=== PATIENT | female | born 2005 | race Caucasian/White ===

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

== ENCOUNTER 2024-08-03 01:19 | Inpatient (IN) | payer BC ==
[2024-08-03] MEDS ORDERED: Sodium Chloride 0.9% 2.5 ML Syringe FLUSH PRN ×2 (02:08→05:10)
[2024-08-03] MEDS ORDERED: Butorphanol 2 MG/ML SDV IVPUSH PRN (02:08)
[2024-08-03] MEDS ORDERED: Ondansetron 4 MG/2 ML SDV IVPUSH PRN (02:08)
[2024-08-03] MEDS ORDERED: Carboprost Tromethamine 250 MCG/1 mL Vial IM PRN (02:08)
[2024-08-03] MEDS ORDERED: Sodium Chloride 0.9% 10 ML Syringe FLUSH PRN ×2 (02:08→05:10)
[2024-08-03] MEDS ORDERED: Tranexamic Acid in NACL,ISO-OS 1,000 MG/100 ML Bag IV PRN (02:08)
[2024-08-03] MEDS ORDERED: Sodium Chloride 0.9% 20 ML SDV IV PRN (02:08)
[2024-08-03] MEDS ORDERED: Nalbuphine 10 MG/1 ML Vial IVPUSH PRN (02:08)
[2024-08-03] MEDS ORDERED: Methylergonovine 0.2 MG/1 ML Amp IM PRN (02:08)
[2024-08-03] MEDS ORDERED: Water For Irrigation,Sterile 1,000 ML Container IRR PRN (02:08)
[2024-08-03] MEDS ORDERED: Lactated Ringers 1,000 ML IV SCH (02:15)
[2024-08-03] MEDS ORDERED: Simethicone 80 MG Tab.Chew PO PRN (05:10)
[2024-08-03] MEDS ORDERED: diphenhydrAMINE 50 MG Cap PO PRN (05:10)
[2024-08-03 05:30] LABS: HEMATOCRIT 34.6 % (37.0-47.0); HEMOGLOBIN 11.9 g/dL (12.0-16.0); MEAN CORPUSCULAR HGB CONC 34.4 g/dL (32.0-36.0); MEAN CORPUSCULAR VOLUME 81.4 fL (83.0-99.0); MEAN PLATELET VOLUME 11.6 fL (9.4-12.3); PLATELET COUNT,PLT 206 K/uL (150-400); RED BLOOD CELL COUNT 4.25 M/uL (4.10-5.30); WHITE BLOOD CELL COUNT,WBC 20.03 K/uL (3.9-11.3)
[2024-08-03] MEDS: Oxytocin/0.9 % Sodium Chloride 30 UNIT/500 ML BAG IV SCH (05:55)
[2024-08-03] MEDS: Misoprostol 200 MCG Tab RECTAL PRN (06:13)
[2024-08-03] MEDS: Lidocaine 1% 50 ML MDV INJECT PRN (06:14)
[2024-08-03] MEDS: Lanolin 100% Cream 7 GM Tube TOP PRN (07:11)
[2024-08-03] MEDS: Benzocaine/Menthol 20%-0.5% Spray 78 GM Cannister TOP PRN (07:11)
[2024-08-03] MEDS: Witch Hazel Medicated Pads 40/Jar TOP PRN (07:12)
[2024-08-03 07:13] LABS: PH,UMBILICAL ARTERIAL 7.105 (7.18-7.38); PH,UMBILICAL VENOUS 7.232 (7.25-7.45)
[2024-08-03] MEDS: Ibuprofen 800 MG Tab PO PRN (07:13)
[2024-08-03] MEDS: Acetaminophen 500 MG Tab PO PRN (07:14)
[2024-08-04 06:06] LABS: HEMOGLOBIN 9.7 g/dL (12.0-16.0); MEAN CORPUSCULAR HEMOGLOBIN 26.9 pg (28.0-32.0); MEAN CORPUSCULAR HGB CONC 32.3 g/dL (32.0-36.0); MEAN CORPUSCULAR VOLUME 83.1 fL (83.0-99.0); MEAN PLATELET VOLUME 11.2 fL (9.4-12.3); PLATELET COUNT,PLT 180 K/uL (150-400); RED BLOOD CELL COUNT 3.61 M/uL (4.10-5.30); WHITE BLOOD CELL COUNT,WBC 13.38 K/uL (3.9-11.3)
[2024-08-04] MEDS: Prenatal Multivitamin with Calcium/Folic Acid/Iron Tab PO SCH (08:14)
[2024-08-04] MEDS: Ferrous Sulfate 325 MG Tab PO SCH (08:14)
[2024-08-04] MEDS: Docusate Sodium 100 MG Cap PO PRN (08:15)
== END 2024-08-04 23:30 | disposition home or self-care (01) | DRG 560 ==
LOC: MW.OB 01:19 → MW.OBCHECK 01:19 → MW.OB 02:08 → MW.OBCHECK 02:08 → UNDOADMOB 02:08 → OBSVTOIN 05:54 → INTOOBSV 05:54 → OBSVTOIN 10:18 → MW.OB 10:18
PROVIDERS: ADMIT Obstetrics & Gynecology; ATTEND Obstetrics & Gynecology Obstetrics
PROC: 10E0XZZ Delivery of Products of Conception, External Approach (ICD-10-PCS; principal; 2024-08-03)
PROC: 10907ZC Drainage of Amniotic Fluid, Therapeutic from Products of Conception, Via Natural or Artificial Opening (ICD-10-PCS; 2024-08-03)
DX: O99.02 Anemia complicating childbirth (principal); Z3A.38 38 weeks gestation of pregnancy; Z37.0 Single live birth; O99.344 Other mental disorders complicating childbirth; F41.9 Anxiety disorder, unspecified; F32.A Depression, unspecified; O70.1 Second degree perineal laceration during delivery; O69.81X0 Labor and delivery complicated by cord around neck, without compression, not applicable or unspecified; D62 Acute posthemorrhagic anemia
CPT/HCPCS: 36415; 59025; 59409; 82803; 85027; 86592; 86850; 86900; 86901; A9270-GY; J2590

== ENCOUNTER 2025-05-29 11:31 | Observation (INO) | payer BC ==
[2025-05-29] MEDS ORDERED: Sodium Chloride 0.9% 10 ML Syringe FLUSH PRN ×2 (11:53→17:30)
[2025-05-29] MEDS ORDERED: Sodium Chloride 0.9% 2.5 ML Syringe FLUSH PRN ×2 (11:53→17:30)
[2025-05-29 12:10] LABS: APPEARANCE,URINE SLT CLOUDY; BASOPHILS ABSOLUTE AUTO 0.02 K/uL (0.00-0.20); BASOPHILS PERCENT AUTO 0.2 % (0.0-1.0); EOSINOPHILS ABSOLUTE AUTO 0.05 K/uL (0.00-0.45); EOSINOPHILS PERCENT AUTO 0.5 % (0.0-6.0); GLUCOSE,URINE NEGATIVE (NEGATIVE); IMMATURE GRAN ABSOLUTE AUTO 0.03 K/uL (0.00-0.05); IMMATURE GRAN PERCENT AUTO 0.3 % (0.0-0.4); LYMPHOCYTES ABSOLUTE AUTO 2.54 K/uL (1.00-4.80); LYMPHOCYTES PERCENT AUTO 27.0 % (24.0-44.0); MEAN PLATELET VOLUME 10.5 fL (9.4-12.3); MONOCYTES ABSOLUTE AUTO 0.66 K/uL (0.00-0.80); MONOCYTES PERCENT AUTO 7.0 % (0.0-8.0); NEUTROPHILS ABSOLUTE AUTO 6.11 K/uL (1.80-7.70); NEUTROPHILS PERCENT AUTO 65.0 % (41.0-71.0); NRBC ABSOLUTE 0.00 K/uL (0.00-0.02); NRBC PERCENT 0.0 /100WBC (0.0-0.2); OCCULT BLOOD,URINE NEGATIVE (NEGATIVE); PLATELET COUNT,PLT 255 K/uL (150-400); RED BLOOD CELL COUNT 3.78 M/uL (4.10-5.30); WHITE BLOOD CELL COUNT,WBC 9.41 K/uL (3.9-11.3)
[2025-05-29 12:20] LABS: EPITHELIAL CELLS,URINE MODERATE (NONE-FEW)
[2025-05-29 12:34] LABS: A/G RATIO 1.0 (0.9-1.6); ALANINE AMINOTRANSFERASE,ALT 29.0 IU/L (14-63); ASPARTATE AMNIOTRANSFERASE,AST 21.0 IU/L (15-37); BILIRUBIN TOTAL 2.0 mg/dL (0.2-1.0); BLOOD UREA NITROGEN,BUN 25.0 mg/dL (7.0-18.0); CARBON DIOXIDE,CO2 22.8 mmol/L (21.0-32.0); CHLORIDE,CL 105.0 mmol/L (98-107); CREATININE 1.0 mg/dL (0.6-1.0); EST CRCL DRUG DOSING (CG) 73.0 mL/min; ESTIMATED GFR 82.0 mL/min (>60); GLUCOSE RANDOM 103.0 mg/dL (74-106); POTASSIUM,K 3.8 mmol/L (3.5-5.1); PROTEIN TOTAL,TP 7.0 g/dL (6.4-8.2); SODIUM,NA 139.0 mmol/L (136-145)
[2025-05-29 12:37] LABS: LACTIC ACID 0.6 mmol/L (0.4-2.0)
[2025-05-29] MEDS: fentaNYL 50 MCG/ML SDV IVPUSH STA (12:43)
[2025-05-29] MEDS: Iopamidol 755 MG/ML 500 ML Multipack Bottle IVPUSH STA (12:50)
[2025-05-29] MEDS ORDERED: Naloxone 0.4 MG/ML SDV IVPUSH PRN (15:40)
[2025-05-29 16:00] LABS: BASOPHILS ABSOLUTE AUTO 0.01 K/uL (0.00-0.20); BASOPHILS PERCENT AUTO 0.1 % (0.0-1.0); EOSINOPHILS ABSOLUTE AUTO 0.01 K/uL (0.00-0.45); EOSINOPHILS PERCENT AUTO 0.1 % (0.0-6.0); IMMATURE GRAN ABSOLUTE AUTO 0.01 K/uL (0.00-0.05); IMMATURE GRAN PERCENT AUTO 0.1 % (0.0-0.4); LYMPHOCYTES ABSOLUTE AUTO 2.23 K/uL (1.00-4.80); LYMPHOCYTES PERCENT AUTO 22.9 % (24.0-44.0); MEAN PLATELET VOLUME 10.3 fL (9.4-12.3); MONOCYTES ABSOLUTE AUTO 0.49 K/uL (0.00-0.80); MONOCYTES PERCENT AUTO 5.0 % (0.0-8.0); NEUTROPHILS ABSOLUTE AUTO 7.00 K/uL (1.80-7.70); NEUTROPHILS PERCENT AUTO 71.8 % (41.0-71.0); NRBC ABSOLUTE 0.00 K/uL (0.00-0.02); NRBC PERCENT 0.0 /100WBC (0.0-0.2); PLATELET COUNT,PLT 217 K/uL (150-400); RED BLOOD CELL COUNT 3.56 M/uL (4.10-5.30); WHITE BLOOD CELL COUNT,WBC 9.75 K/uL (3.9-11.3)
[2025-05-29] MEDS: Ondansetron 4 MG/2 ML SDV IVPUSH PRN (17:11)
[2025-05-29] MEDS: Lactated Ringers 1,000 ML IV SCH (17:12)
[2025-05-29] MEDS: fentaNYL 100 MCG/2 ML SDV IVPUSH ONE (17:12)
[2025-05-29] MEDS ORDERED: Ondansetron 4 MG Tab.DIS PO PRN (17:30)
[2025-05-29 19:45] LABS: BASOPHILS ABSOLUTE AUTO 0.03 K/uL (0.00-0.20); BASOPHILS PERCENT AUTO 0.3 % (0.0-1.0); EOSINOPHILS ABSOLUTE AUTO 0.02 K/uL (0.00-0.45); EOSINOPHILS PERCENT AUTO 0.2 % (0.0-6.0); IMMATURE GRAN ABSOLUTE AUTO 0.03 K/uL (0.00-0.05); IMMATURE GRAN PERCENT AUTO 0.3 % (0.0-0.4); LYMPHOCYTES ABSOLUTE AUTO 2.64 K/uL (1.00-4.80); LYMPHOCYTES PERCENT AUTO 25.4 % (24.0-44.0); MEAN PLATELET VOLUME 10.3 fL (9.4-12.3); MONOCYTES ABSOLUTE AUTO 0.73 K/uL (0.00-0.80); MONOCYTES PERCENT AUTO 7.0 % (0.0-8.0); NEUTROPHILS ABSOLUTE AUTO 6.96 K/uL (1.80-7.70); NEUTROPHILS PERCENT AUTO 66.8 % (41.0-71.0); NRBC ABSOLUTE 0.00 K/uL (0.00-0.02); NRBC PERCENT 0.0 /100WBC (0.0-0.2); PLATELET COUNT,PLT 226 K/uL (150-400); RED BLOOD CELL COUNT 3.33 M/uL (4.10-5.30); WHITE BLOOD CELL COUNT,WBC 10.41 K/uL (3.9-11.3)
[2025-05-30 00:31] LABS: MEAN PLATELET VOLUME 10.2 fL (9.4-12.3); NRBC ABSOLUTE 0.00 K/uL (0.00-0.02); NRBC PERCENT 0.0 /100WBC (0.0-0.2); PLATELET COUNT,PLT 189 K/uL (150-400); RED BLOOD CELL COUNT 3.07 M/uL (4.10-5.30); WHITE BLOOD CELL COUNT,WBC 8.02 K/uL (3.9-11.3)
[2025-05-30] MEDS ORDERED: Ropivacaine 0.5% 5 MG/ML 30 ML SDV ONE (01:41)
[2025-05-30] MEDS ORDERED: propofoL 1,000 MG/100 ML 100 ML ONE (01:41)
[2025-05-30] MEDS ORDERED: dexmedeTOMIDine HCl 200 MCG/2 ML SDV ONE (01:48)
[2025-05-30] MEDS ORDERED: fentaNYL 100 MCG/2 ML SDV ONE (01:49)
[2025-05-30] MEDS ORDERED: Bupivacaine 0.5%/EPINEPHrine 1:200,000 30 ML SDV ONE (01:50)
[2025-05-30] MEDS ORDERED: Ketamine HCL/NACL, ISO-OSM 50 MG/5 ML Syringe ONE (01:50)
[2025-05-30] MEDS ORDERED: Midazolam 1 MG/ML 2 ML SDV ONE (01:57)
[2025-05-30] MEDS ORDERED: Ondansetron 4 MG/2 ML SDV ONE (02:40)
[2025-05-30] MEDS ORDERED: Dexamethasone 4 MG/ML 5 ML MDV ONE (02:40)
[2025-05-30] MEDS ORDERED: Naloxone 0.4 MG/ML SDV IVPUSH PRN ×2 (03:17→08:01)
[2025-05-30] MEDS ORDERED: fentaNYL 50 MCG/ML SDV IVPUSH PRN ×2 (03:17→08:01)
[2025-05-30] MEDS ORDERED: Albuterol 0.083% 2.5 MG/3 ML Neb Soln NEB PRN ×2 (03:17→08:01)
[2025-05-30] MEDS ORDERED: Ondansetron 4 MG/2 ML SDV IVPUSH PRN ×3 (03:17→08:01)
[2025-05-30] MEDS ORDERED: propofoL 500 MG/50 ML 50 ML ONE (03:32)
[2025-05-30] MEDS ORDERED: Ketorolac 30 MG/ML SDV ONE (03:39)
[2025-05-30] MEDS ORDERED: Acetaminophen/oxyCODONE 325-5 MG Tab PO PRN ×2 (05:14)
[2025-05-30] MEDS ORDERED: Promethazine 25 MG/ML SDV IM PRN (05:14)
[2025-05-30] MEDS: Ondansetron 4 MG/2 ML SDV IVPUSH ONE (08:12)
[2025-05-30] MEDS: Ketorolac 30 MG/ML SDV IVPUSH ONE (08:12)
[2025-05-30] MEDS: Ketorolac 30 MG/ML SDV IVPUSH SCH (11:01)
[2025-05-30 11:16] LABS: BASOPHILS ABSOLUTE AUTO 0.00 K/uL (0.00-0.20); BASOPHILS PERCENT AUTO 0.0 % (0.0-1.0); EOSINOPHILS ABSOLUTE AUTO 0.00 K/uL (0.00-0.45); EOSINOPHILS PERCENT AUTO 0.0 % (0.0-6.0); IMMATURE GRAN ABSOLUTE AUTO 0.04 K/uL (0.00-0.05); IMMATURE GRAN PERCENT AUTO 0.4 % (0.0-0.4); LYMPHOCYTES ABSOLUTE AUTO 0.83 K/uL (1.00-4.80); LYMPHOCYTES PERCENT AUTO 9.0 % (24.0-44.0); MEAN PLATELET VOLUME 10.3 fL (9.4-12.3); MONOCYTES ABSOLUTE AUTO 0.17 K/uL (0.00-0.80); MONOCYTES PERCENT AUTO 1.8 % (0.0-8.0); NEUTROPHILS ABSOLUTE AUTO 8.18 K/uL (1.80-7.70); NEUTROPHILS PERCENT AUTO 88.8 % (41.0-71.0); NRBC ABSOLUTE 0.00 K/uL (0.00-0.02); NRBC PERCENT 0.0 /100WBC (0.0-0.2); PLATELET COUNT,PLT 198 K/uL (150-400); RED BLOOD CELL COUNT 3.26 M/uL (4.10-5.30); WHITE BLOOD CELL COUNT,WBC 9.22 K/uL (3.9-11.3)
[2025-05-30] MEDS ORDERED: Sodium Ferric Gluconate Cmplex 125 MG in Sodium Chloride 0.9% 100 ML IV SCH (12:15)
[2025-05-30] MEDS: Sodium Ferric Gluconate Cmplex 125 MG in Sodium Chloride 0.9% 100 ML IV SCH (13:42)
== END 2025-05-30 15:32 | disposition home or self-care (01) ==
LOC: MW.ED 11:31 → MW.OB 15:41
PROVIDERS: ADMIT Obstetrics & Gynecology; ATTEND Obstetrics & Gynecology
DX: N83.201 Unspecified ovarian cyst, right side (principal); K66.1 Hemoperitoneum; D62 Acute posthemorrhagic anemia; E66.9 Obesity, unspecified; Z68.30 Body mass index [BMI] 30.0-30.9, adult; Z79.899 Other long term (current) drug therapy
CPT/HCPCS: 36415; 58662; 64488; 74177; 76856; 80053; 81001; 81025; 83605; 83690; 83735; 85025; 85027; 86850; 86900; 86901; 96374; 96375; 99285; A9270; J1100; J1885; J2250; J2270; J2405; J2704; J2795; J2916; J3010; J7030; J7120; Q9967; 00840; 49322; 96361; 96376; 99238; 99284; G0378; J0665; J3490